=== PATIENT | male | born 1940 | race Caucasian/White ===

== ENCOUNTER 2020-08-22 16:28 | Emergency (ER) | payer MEDICARE ==
[2020-08-22] MEDS ORDERED: LORazepam 2 MG/ML INJ IV STA (16:32)
[2020-08-22] MEDS ORDERED: levETIRAcetam IV 1,000 MG in SALINE 1 100ML.BAG IVPB STA (16:33)
[2020-08-22 16:38] VITALS: TEMP 100.1
[2020-08-22 16:41] LABS: Glucose,Whole Blood 121 mg/dL (75-99)
[2020-08-22 16:50] LABS: Basophils % (A) 0 %; Eosinophils % (A) 0 %; HCT 48.8 % (39.0-53.0); HGB 16.5 gm/dL (13.0-17.5); Lymphocytes # (A) 0.5 k/uL (1.0-4.8); Lymphocytes % (A) 4 %; MCH 32.5 pg (25.0-35.0); MCHC 33.8 g/dL (31.0-37.0); MCV 96.3 fL (80.0-100.0); Mean Platelet Volume 9.5; Monocytes # (A) 0.8 k/uL (0-1.0); Monocytes % (A) 7 %; Neutrophils % (A) 86 %; Platelet Count 153 k/uL (150-450); RBC 5.07 m/uL (4.30-5.90); RDW 13.2 % (11.5-15.5); WBC 11.6 k/uL (3.8-10.6)
[2020-08-22 16:57] LABS: Albumin 3.9 g/dL (3.5-5.0); Calcium 8.8 mg/dL (8.4-10.2); Potassium 4.3 mmol/L (3.5-5.1); Total Bilirubin 2.2 mg/dL (0.2-1.3); Total Protein 6.9 g/dL (6.3-8.2)
[2020-08-22] MEDS ORDERED: MANNITOL 20% IV ONE (16:58)
--- NOTE | 2020-08-22 17:00 | CT ---
EXAMINATION TYPE: CT brain wo con for TPA DATE OF EXAM: 08/22/2020 COMPARISON: None HISTORY: Seizure. Mental status changes. CT DLP: 1154.8 mGycm Automated exposure control for dose reduction was used. Images were obtained of the brain without contrast. There is high attenuation over large area of the right cerebral hemisphere. This measures up to 1.4 c m in thickness related to acute subdural hemorrhage. There is some effacement of the right lateral ve ntricle. There is midline shift slightly to the left side. The cerebellum is intact. Fourth ventricle is intact. The calvarium is intact. I see no skull fracture. The skull base is intact. There is norm al aeration of the mastoid sinuses. IMPRESSION: Large acute subdural hemorrhage of the right cerebral hemisphere as above. This exam was discussed wi Dr. Lemons at 5:00 PM.
[2020-08-22 17:02] LABS: Prothrombin Time 10.8 sec (9.0-12.0)
[2020-08-22 17:13] LABS: Partial Thromboplastin Time 21.1 sec (22.0-30.0)
[2020-08-22 17:21] VITALS: RESP 22
[2020-08-22] MEDS ORDERED: DILTIAZEM DRIP BOLUS FROM BAG 1 MG SOLN IV ONE (17:23)
--- NOTE | 2020-08-22 17:23 | ED ---
Neuro HPI - General Chief Complaint: Neuro Symptoms/Deficit Stated Complaint: Poss Stroke Time Seen by Provider: 08/22/20 16:30 Source: patient, EMS, RN notes reviewed Mode of arrival: EMS Limitations: language barrier, physical limitation - History of Present Illness Is the patient presenting with stroke symptoms?: Yes Last Known Well Date: 08/22/20 Last Known Well Time: 15:22 Initial Comments: this is a 79-year-old male with a history of A. fib and a history of a tracheostomy possible laryngectomy though the history is incomplete who was last seen in his usual state about 1 hour prior to arrival he was on the floor by his and brought here for evaluation for possible stroke patient apparently is nonverbal normally but had left facial droop left upper lower extremity weakness. The weakness seems to improved somewhat. Patient did complain of a headache also. No neck or back pain. Patient is currently only on aspirin not on any other type of blood thinners apparently. Review of Systems ROS Statement: Those systems with pertinent positive or pertinent negative responses have been documented in the HPI. ROS Other: All systems not noted in ROS Statement are negative. General Exam - General Exam Comments Initial Comments: this is a well-developed well-nourished awake male who does respond to questions Limitations: language barrier, physical limitation General appearance: alert Head exam: Present: other (patient does demonstrate right lateral gaze) Eye exam: Present: PERRL, EOMI ENT exam: Present: other (she does have a tracheostomyin addition there is evidence of flattening of the left nasolabial fold) Neck exam: Present: other (discharge or bruits tracheostomy site is indicated) Cardiovascular Exam: Present: irregular rhythm Extremities exam: Present: normal inspection, normal capillary refill, other (he does have limited movement of his left upper lower extremity is apparently was not present earlier). Absent: full ROM Back exam: Present: normal inspection Neurological exam: Present: alert. Absent: CN II-XII intact Psychiatric exam: Present: normal affect, normal mood Skin exam: Present: warm, dry, intact, normal color. Absent: rash Stroke MDM - Lab Data Result diagrams: 08/22/20 16:30 08/22/20 16:30 Lab Results 08/22/20 08/22/20 08/22/20 Range/Units 16:30 16:30 16:30 WBC 11.6 H (3.8-10.6) k/uL RBC 5.07 (4.30-5.90) m/uL Hgb 16.5 (13.0-17.5) gm/dL Hct 48.8 (39.0-53.0) % MCV 96.3 (80.0-100.0) fL MCH 32.5 (25.0-35.0) pg MCHC 33.8 (31.0-37.0) g/dL RDW 13.2 (11.5-15.5) % Plt Count 153 (150-450) k/uL MPV 9.5 Neutrophils % 86 % Lymphocytes % 4 % Monocytes % 7 % Eosinophils % 0 % Basophils % 0 % Neutrophils # 10.0 H (1.3-7.7) k/uL Lymphocytes # 0.5 L (1.0-4.8) k/uL Monocytes # 0.8 (0-1.0) k/uL Eosinophils # 0.0 (0-0.7) k/uL Basophils # 0.0 (0-0.2) k/uL PT 10.8 (9.0-12.0) sec INR 1.0 (<1.2) APTT 21.1 L (22.0-30.0) sec Sodium 137 (137-145) mmol/L Potassium 4.3 (3.5-5.1) mmol/L Chloride 103 (98-107) mmol/L Carbon Dioxide 25 (22-30) mmol/L Anion Gap 9 mmol/L BUN 27 H (9-20) mg/dL Creatinine 1.34 H (0.66-1.25) mg/dL Est GFR (CKD-EPI)AfAm 58 (>60 ml/min/1.73 sqM) Est GFR (CKD-EPI)NonAf 50 (>60 ml/min/1.73 sqM) Glucose 125 H (74-99) mg/dL POC Glucose (mg/dL) (75-99) mg/dL POC Glu Wellness Guide ID Plasma Lactic Acid Dann (0.7-2.0) mmol/L Calcium 8.8 (8.4-10.2) mg/dL Total Bilirubin 2.2 H (0.2-1.3) mg/dL AST 43 (17-59) U/L ALT 22 (4-49) U/L Alkaline Phosphatase 47 (38-126) U/L Creatine Kinase 619 H (55-170) U/L Total Protein 6.9 (6.3-8.2) g/dL Albumin 3.9 (3.5-5.0) g/dL Lipase 103 (23-300) U/L Coronavirus (PCR) (Not Detectd) 08/22/20 08/22/20 08/22/20 Range/Units 16:30 16:30 16:51 WBC (3.8-10.6) k/uL RBC (4.30-5.90) m/uL Hgb (13.0-17.5) gm/dL Hct (39.0-53.0) % MCV (80.0-100.0) fL MCH (25.0-35.0) pg MCHC (31.0-37.0) g/dL RDW (11.5-15.5) % Plt Count (150-450) k/uL MPV Neutrophils % % Lymphocytes % % Monocytes % % Eosinophils % % Basophils % % Neutrophils # (1.3-7.7) k/uL Lymphocytes # (1.0-4.8) k/uL Monocytes # (0-1.0) k/uL Eosinophils # (0-0.7) k/uL Basophils # (0-0.2) k/uL PT (9.0-12.0) sec INR (<1.2) APTT (22.0-30.0) sec Sodium (137-145) mmol/L Potassium (3.5-5.1) mmol/L Chloride (98-107) mmol/L Carbon Dioxide (22-30) mmol/L Anion Gap mmol/L BUN (9-20) mg/dL Creatinine (0.66-1.25) mg/dL Est GFR (CKD-EPI)AfAm (>60 ml/min/1.73 sqM) Est GFR (CKD-EPI)NonAf (>60 ml/min/1.73 sqM) Glucose (74-99) mg/dL POC Glucose (mg/dL) 121 H (75-99) mg/dL POC Glu Wellness Guide ID Ric Diegoey Plasma Lactic Acid Dann 2.6 H* (0.7-2.0) mmol/L Calcium (8.4-10.2) mg/dL Total Bilirubin (0.2-1.3) mg/dL AST (17-59) U/L ALT (4-49) U/L Alkaline Phosphatase (38-126) U/L Creatine Kinase (55-170) U/L Total Protein (6.3-8.2) g/dL Albumin (3.5-5.0) g/dL Lipase (23-300) U/L Coronavirus (PCR) Not Detected (Not Detectd) - NIH Stroke Scale 1a. Level of Consciousness: (0) alert 1b. LOC Questions: (0) answers correctly 1c. LOC Commands: (0) performs tasks correctly 2. Best Gaze: (1) partial gaze palsy 3. Visual: (0) no visual loss 4. Facial Palsy: (2) partial paralysis 5a. Motor Arm Left: (2) some gravity effort 5b. Motor Arm Right: (0) no drift 6a. Motor Leg Left: (2) some gravity effort 6b. Motor Leg Right: (0) no drift 7. Limb Ataxia: (2) present 2 limbs 8. Sensory: (0) normal 9. Best Language: (1) mild/moderate aphasia 10. Dysarthria: (0) normal 11. Extinction/Inattention: (0) no abnormality - Medical Decision Making I did discuss the case with Dr. Payton patient will be transferred to [facility] Dr. Hernandez is agreed to set the patient transfer ER to ER. Patient did receive IV mannitol also during his stay here he did have a seizure lasting less than a minute he was given IV Ativan as well as IV Keppra. He currently is awake and alert. No evidence of any respiratory compromise at this time. - EKG Data Rate: tachycardia (Fibrillation rate of 126 QRS 108 QT since QTC 3:30/477 nonspecific anterior configuration) Past Medical History Past Medical History: No Reported History History of Any Multi-Drug Resistant Organisms: None Reported Past Surgical History: No Surgical Hx Reported Past Psychological History: No Psychological Hx Reported Smoking Status: Unknown if ever smoked Past Alcohol Use History: Unable to Obtain Past Drug Use History: Unable to Obtain Course Vital Signs 08/22/20 08/22/20 08/22/20 16:30 16:40 17:05 Temperature 100.1 F H 100.1 F H 100.1 F H Pulse Rate 141 H 133 H 100 Respiratory 26 H 23 20 Rate Blood Pressure 135/106 152/105 O2 Sat by Pulse 99 98 98 Oximetry 08/22/20 17:20 Temperature 100.1 F H Pulse Rate 87 Respiratory 22 Rate Blood Pressure 158/92 O2 Sat by Pulse 98 Oximetry - Reevaluation(s) Reevaluation #1: 08/22/20 17:26 a CAT scan did show evidence of a right subdural hematoma with approximately 1.4 cm thickness also evidence of some shift. I did discuss this with Dr. Mehta from radiology. Also the patient did have a code stroke called upon arrival and did discuss the case also with Dr. Payton. Procedures - [facility] Protocol (Time Out) Nurse: Mansi Enciso Critical Care Time Critical Care Time: Yes Total Critical Care Time: 47 Critical Care Time: the critical care time including initial presentation with history physical labs and x-rays and imaging. Discussed with the paramedics upon arrival also reevaluation of the patient discussion with multiple physicians and documentation the above. Currently no charting available in this facility Disposition Clinical Impression: Subdural hematoma, Hemorrhagic stroke, Febrile illness, Rapid atrial fibrillation Disposition: OTHER INSTITUTION NOT DEFINED Condition: Critical Referrals: Suhail Braxton MD [Primary Care Provider] - 1-2 days - Out of Hospital Transfer - Req. Specs Out of Hospital Transfer - Requested Specifics: Other Emergency Center
--- NOTE | 2020-08-22 17:27 | CT ---
EXAMINATION TYPE: CT angio head neck DATE OF EXAM: 08/22/2020 COMPARISON: None HISTORY: Seizure. Mental status changes. CT DLP: 631 mGycm Automated exposure control for dose reduction was used. CONTRAST: Performed with IV Contrast, patient injected with 65 mL of Isovue 370. Images obtained from the aortic arch to the vertex of the brain with IV contrast and 3-D post process ed images. There is 4.5 cm aneurysm of the ascending aorta. There is normal branching pattern of the great vesse ls on the aortic arch. There is bilateral arterial flow in the subclavian arteries. There is arterial flow in the common internal and external carotid arteries bilaterally. There is arterial flow in bot h vertebral arteries. There is arterial flow in the vertebrobasilar artery system. There is no eviden ce of carotid or vertebral artery aneurysm or dissection. There is wide patency of the carotid artery bifurcations. There is less than 10% stenosis of the internal carotid arteries. There is arterial flow in the anterior middle and posterior cerebral arteries. There is no evidence o f intracranial aneurysm or neovascularity. There is normal enhancement of the venous sinuses. There is high attenuation over the right cerebral hemisphere with mass effect related to large acute subdural hemorrhage. This measures up to 1.5 cm in thickness. There is some effacement of the right l ateral ventricle and shift of the midline to the left side. There is no evidence of intracranial arterial stenosis. IMPRESSION: IMPRESSION: Aneurysm of the ascending aorta. Negative CT angiogram of the neck. No intracranial angiographic abnormality. Large acute right hemisphere subdural hemorrhage.
[2020-08-22] MEDS ORDERED: DILTIAZEM 125 MG in SODIUM CHLORIDE 0.9% 100 ML IV SCH (17:30)
[2020-08-22 17:38] VITALS: BP 152/88; PULSE 89
== END 2020-08-22 17:38 | disposition other institution (70) ==
LOC: EC 16:28 → SUPCPDRO 16:28 → EC 17:38
DX: I62.00 Nontraumatic subdural hemorrhage, unspecified (principal); R29.810 Facial weakness; I48.20 Chronic atrial fibrillation, unspecified; R53.1 Weakness; Z20.822 Contact with and (suspected) exposure to COVID-19
CPT/HCPCS: 96365 ×2; 96375 ×2; 99291 ×2; 36415; 93005; 80053; 82550; 83605; 83690; 84484; 85025; 85610; 85730; 87040; 87635; 70496; 70450; 70498; J2060; J1953; Q9967

== ENCOUNTER → 2020-11-22 | Outpatient (CLI) | payer MEDICARE ==
--- NOTE | 2020-12-17 18:23 | EEG ---
ELECTROENCEPHALOGRAM REPORT PROCEDURE DATE: 11/22/2020 ELECTROENCEPHALOGRAM (EEG) REPORT: TECHNIQUE: This is a report from a 2-1/2 hour continuous EEG performed using the 10/20 international electrode placement system. HISTORY: Subdural hematoma, status post craniotomy, seizures. OTHER MEDICAL HISTORY: Includes hypertension, throat cancer. CURRENT MEDICATIONS: Aspirin, Keppra, Dilantin, Lopressor, olanzapine, Pepcid. FINDINGS: Recording start time: 11/22/2020 at 7:45 am. Recording end time: 11/22/2020 at 10:15 am. EVENTS: During this prolonged 2-1/2 hour EEG, no clinical or electrographic seizures were recorded. BACKGROUND: The background activity consisted of 7-8 hertz rhythmic waveforms, this was somewhat less well defined, unsustained over the right posterior quadrants compared to the left. ACTIVATION: Hyperventilation: Not performed. Photic stimulation: Mild symmetric driving seen. Sleep: Stages I and II sleep noted. ABNORMALITIES: Rare to occasional right central theta range slowing was seen. IMPRESSION: Abnormal 2-1/2 hour EEG. The right central theta range slowing mentioned above is not epileptiform in nature. These findings suggest mild diffuse cerebral dysfunction of the right hemisphere with greater focal involvement of the right central region. MMODL / IJN: [id number] / [facility]
== END ==
LOC: NEUROMAIN 07:04
PROVIDERS: ATTEND Psychiatry & Neurology Neurology
DX: R56.9 Unspecified convulsions (principal); I62.00 Nontraumatic subdural hemorrhage, unspecified
CPT/HCPCS: 95713

== ENCOUNTER → 2020-11-29 | Outpatient (CLI) | payer MEDICARE ==
--- NOTE | 2020-11-29 09:04 | CT ---
EXAMINATION TYPE: CT brain wo con DATE OF EXAM: 11/29/2020 COMPARISON: 08/22/2020 HISTORY: 80-year-old male Subdural hematoma and seizure TECHNIQUE: Examination was done in axial plane without intravenous contrast. Coronal and sagittal r econstructions performed. CT DLP: 1081.60 mGycm Automated exposure control for dose reduction was used. FINDINGS: Interval craniotomy flap along the right lateral convexity. Underlying the craniotomy flap is a 7 mm thick collection of extra-axial fluid. This has only minimal mass effect onto the adjacent cerebral c ortex and CSF attenuation. No midline shift or herniation. The previous sizable right-sided subdural hematoma has essentially resolved. No effacement of basal subarachnoid cisterns. No acute intracrania l hemorrhage. Atelectatic calcifications in the carotid siphons. Periventricular patchy white matter hypodensities compatible with chronic small vessel ischemic disease. Moderate ventricular prominence likely due to central cerebral atrophy. Partially visualized possible polyp measuring at least 1.6 cm along the floor of the right maxillary sinus. Rightward deviation of the anterior right nasal septum. Mild mucosal thickening ethmoid air ce lls. Mastoid air cells well pneumatized. Orbits and globes appear intact. IMPRESSION: 1. Interval right-sided craniotomy flap. A 7 mm thick collection of extra-axial fluid directly under the flap shows simple CSF attenuation and may be postsurgical. This has only minimal mass effect onto the adjacent cerebral cortex. No midline shift or herniation. Follow-up as clinically indicated. 2. The previous right-sided subdural hematoma has otherwise resolved. 3. Mild to moderate generalized atrophy and patchy changes of chronic small vessel ischemic disease.
== END | disposition home or self-care (01) ==
LOC: RADCTMAIN 07:38
PROVIDERS: ATTEND Psychiatry & Neurology Neurology
DX: R56.9 Unspecified convulsions (principal); I62.00 Nontraumatic subdural hemorrhage, unspecified; I67.82 Cerebral ischemia
CPT/HCPCS: 70450

== ENCOUNTER → 2023-04-23 | Outpatient (CLI) | payer MEDICARE | LOC: NEUROMAIN 10:40 | PROVIDERS: ATTEND Psychiatry & Neurology Neurology | DX: R56.9 Unspecified convulsions (principal) | CPT/HCPCS: 95712; 95713 ==